=== PATIENT | female | born 1965 ===

== ENCOUNTER 2016-10-28 07:00 | Inpatient (IN) | payer OTHER ==
[~2016-10-28] VITALS: Ht 160 cm; Wt 106.1 kg
[2017-01-26] MEDS ORDERED: METFORMIN HCL1000 M1 ORAL (15:12)
[2017-01-26] MEDS ORDERED: NORVASC5 MG ORAL (15:13)
[2017-01-27] VITALS (13 sets, daily range): BP systolic 110–142; BP diastolic 61–82
[2017-01-27 06:12] LABS: BASOPHILS % (AUTO) 1.1 % (0.0-2.0); EOSINOPHILS % (AUTO) 1.3 % (0.0-3.0); LYMPHOCYTES % (AUTO) 31.6 % (20.0-45.0); MEAN CORPUSCULAR HEMOGLOBIN 29.2 PG (27.0-31.0); MEAN CORPUSCULAR HGB CONC 33.5 G/DL (32.0-36.0); MEAN CORPUSCULAR VOLUME 87 FL (80-99); MEAN PLATELET VOLUME 8.7 FL (6.5-10.1); MONOCYTES % (AUTO) 5.4 % (1.0-10.0); NEUTROPHILS % (AUTO) 60.5 % (45.0-75.0); PLATELET COUNT 285 K/UL (150-450); RED BLOOD COUNT 5.06 M/UL (4.20-5.40); RED CELL DISTRIBUTION WIDTH 12.4 % (11.6-14.8)
[2017-01-27] MEDS ORDERED: Thrombin 5000 units TOPIC ONE (06:32)
[2017-01-27] MEDS ORDERED: Surgicel 4in x 8in TOPIC ONE (06:32)
[2017-01-27] MEDS ORDERED: Vancomycin 1gm inj IVPB ONE (06:32)
[2017-01-27] MEDS ORDERED: Heparin 5000 units/ml inj ONE (06:33)
[2017-01-27] MEDS ORDERED: Bupivacaine w/Epi 0.5% 30ml Vial INJ ONE (06:33)
[2017-01-27] MEDS ORDERED: Bupivacaine 0.5% Inj 30 ml vial INJ ONE (06:33)
[2017-01-27] MEDS ORDERED: Bacitracin 50000 Units Vial ONE (06:33)
[2017-01-27] MEDS ORDERED: LR 1000ml 1,000 ML IVLG SCH (06:54)
--- NOTE | 2017-01-27 06:58 | Immediate Post-Op Evaluation ---
Immediate Post-Op Evalulation Immediate Post-Op Evalulation Procedure: ALIF L4-5, Posterior Pedicle Screws, L4-5 Date of Evaluation: January 27, 2017 Time of Evaluation: 12:22 IV Fluids: 1000 LR Blood Products: 0 Estimated Blood Loss: 40 Urinary Output: 300 Blood Pressure Systolic: 142 Blood Pressure Diastolic: 76 Pulse Rate: 96 Respiratory Rate: 16 O2 Sat by Pulse Oximetry: 97 Temperature (Fahrenheit): 97.2 Pain Score (1-10): 3 Nausea: No Vomiting: No Complications 0 Patient Status: awake, reacts, patent, extubated, none Hydration Status: adequate Dru Grams Ancef IV Given Within 1 Hr of Incision: Yes Time Given: 07:36 Luiz Brown MD January 27, 2017 06:58
--- NOTE | 2017-01-27 06:58 | Anethesia Preoperative Eval ---
Anesthesia Pre-op PMH/ROS General Date of Evaluation: January 27, 2017 Time of Evaluation: 07:24 Anesthesiologist: Kevin ASA Score: ASA 3 Mallampati Score Class I : Soft palate, uvula, fauces, pillars visible Class II: Soft palate, uvula, fauces visible Class III: Soft palate, base of uvula visible Class IV: Only hard plate visible Mallampati Classification: Class II Surgeon: New Diagnosis: Back Pain Surgical Procedure: ALIF L4-5, Posterior Pedicle Screws, L4-5 Anesthesia History: none Family History: no anesthesia problems Allergies: Coded Allergies: No Known Allergies (Unverified , 01/26/17) Medications: see eMAR Past Medical History Cardiovascular: Reports: HTN Endocrine: Reports: DM Other: obesity - BMI 42 Anesthesia Pre-op Phys. Exam Physician Exam Last Vital Signs Date Time Temp Pulse Resp B/P Pulse Ox O2 Delivery O2 Flow Rate FiO2 01/27/17 05:49 98.4 88 18 137/82 96 Room Air Constitutional: NAD Neurologic: CN 2-12 intact Cardiovascular: RRR Respiratory: CTA Gastrointestinal: S/NT/ND Airway Exam Mallampati Score: Class II MO: full ROM: limited Teeth: intact Anesthesia Pre-op A/P Labs Hematology Test 01/27/17 05:40 White Blood Count 9.0 K/UL (4.8-10.8) Red Blood Count 5.06 M/UL (4.20-5.40) Hemoglobin 14.8 G/DL (12.0-16.0) Hematocrit 44.2 % (37.0-47.0) Mean Corpuscular Volume 87 FL (80-99) Mean Corpuscular Hemoglobin 29.2 PG (27.0-31.0) Mean Corpuscular Hemoglobin Concent 33.5 G/DL (32.0-36.0) Red Cell Distribution Width 12.4 % (11.6-14.8) Platelet Count 285 K/UL (150-450) Mean Platelet Volume 8.7 FL (6.5-10.1) Neutrophils (%) (Auto) 60.5 % (45.0-75.0) Lymphocytes (%) (Auto) 31.6 % (20.0-45.0) Monocytes (%) (Auto) 5.4 % (1.0-10.0) Eosinophils (%) (Auto) 1.3 % (0.0-3.0) Basophils (%) (Auto) 1.1 % (0.0-2.0) Coagulation Test 01/27/17 06:40 Prothrombin Time Pending Prothromb Time International Ratio Pending Activated Partial Thromboplast Time Pending Chemistry Test 01/27/17 05:40 Sodium Level Pending Potassium Level Pending Chloride Level Pending Carbon Dioxide Level Pending Blood Urea Nitrogen Pending Creatinine Pending Estimat Glomerular Filtration Rate Pending Glucose Level Pending Calcium Level Pending Risk Assessment & Plan Assessment: ASA 3 Plan: GA, BIS, Glidescope Status Change Before Surgery: No Pre-Antibiotics Dru Grams Ancef IV Given Within 1 Hr of Incision: Yes Time Given: 07:36 Luiz Brown MD January 27, 2017 06:58
[2017-01-27] MEDS ORDERED: Metoclopramide 10mg/2ml Inj IVP PRN ×2 (07:00→14:00)
[2017-01-27] MEDS ORDERED: ceFAZolin sod 1 GM in NS 55 ML IVPB ONE (07:00)
[2017-01-27] MEDS ORDERED: Oxycodone/Acetaminophen 5-325 ORAL PRN (07:00)
[2017-01-27] MEDS ORDERED: Hydromorphone 0.5mg/0.5ml inj IVP PRN (07:00)
[2017-01-27] MEDS ORDERED: Norco 5mg/325mg tab ORAL PRN (07:00)
[2017-01-27] MEDS ORDERED: Dexamethasone 4mg/ml vial IVP ONE (07:00)
[2017-01-27] MEDS ORDERED: DiphenhydrAMINE 50mg/ml Inj IVP PRN (07:00)
[2017-01-27] MEDS ORDERED: Midazolam 2mg/2ml Inj IVP PRN (07:00)
[2017-01-27] MEDS ORDERED: Norco 7.5mg/325mg tab ORAL PRN (07:00)
[2017-01-27] MEDS ORDERED: LORazepam Inj 2mg/ml 1ml IV PRN (07:00)
[2017-01-27] MEDS ORDERED: Dexamethasone 20mg/5ml IVP ONE (07:00)
[2017-01-27] MEDS ORDERED: Meperidine 25mg/0.5ml Inj IV PRN (07:00)
[2017-01-27] MEDS ORDERED: Ketorolac 30mg Inj IV PRN (07:00)
[2017-01-27] MEDS ORDERED: Atropine Inj 1mg/10ml Syr IV PRN (07:00)
[2017-01-27] MEDS ORDERED: fentaNYL 100 mcg/2 mL IV PRN (07:00)
[2017-01-27] MEDS ORDERED: Ketorolac 60mg Inj IV PRN (07:00)
[2017-01-27 07:10] LABS: ANION GAP 14 (5-15); CALCIUM 9.2 mg/dL (8.6-10.2); CARBON DIOXIDE 26 mEQ/L (20-30); CHLORIDE 98 mEQ/L (98-107); CREATININE 0.6 mg/dL (0.5-0.9); GLOMERULAR FILTRATION RATE > 60 mL/min (>60); HEMOLYSIS 139; POTASSIUM 4.6 mEQ/L (3.4-4.9); SODIUM 138 mEQ/L (135-145)
[2017-01-27] MEDS ORDERED: Acetaminophen (Non formulary) 100 ML IV ONE (07:15)
--- NOTE | 2017-01-27 07:19 | Pre-Procedure Note/Attestation ---
Pre-Procedure Note/Attestation Complete Prior to Procedure Planned Procedure: not applicable Procedure Narrative: Anterior L4-5: reconstruction, correction deformity, fusion bmp, Posterior pedicle screw L4, L5, Fusion Indications for Procedure Pre-Operative Diagnosis: Post trauma pain, spondylolisthesis, instability Attestation I attest that I discussed the nature of the procedure; its benefits; risks and complications; and alternatives (and the risks and benefits of such alternatives ), prior to the procedure, with the patient (or the patient's legal food service sales representatives). I attest that, if there was a reasonable possibility of needing a blood transfusion, the patient (or the patient's legal food service sales representatives) was given the [place] Department [employer] standardized written summary, pursuant to the [place] Blood Safety Act ([place] Health and Safety Code # 1645, as amended). I attest that I re-evaluated the patient just prior to the surgery and that there has been no change in the patient's H&P, except as documented below: TITO KINCAID January 27, 2017 07:19
[2017-01-27 07:22] LABS: PROTHROMBIN TIME 10.1 SEC (9.30-11.50)
[2017-01-27] MEDS ORDERED: Propofol 10mg/ml 100ml btl IV ONE (07:30)
[2017-01-27] MEDS ORDERED: Sterile Water Irrig 1000ml IRRIG ONE (07:30)
[2017-01-27] MEDS ORDERED: Zemuron 50mg/5ml Inj IV ONE (07:30)
[2017-01-27] MEDS ORDERED: NS 550ML IV ONE (07:30)
[2017-01-27] MEDS ORDERED: NS Irrig 1000ml ONE (07:30)
[2017-01-27] MEDS ORDERED: Midazolam 2mg/2ml Inj ONE (07:30)
[2017-01-27] MEDS ORDERED: fentaNYL 250mcg/5ml ONE (07:30)
[2017-01-27] MEDS ORDERED: Glycopyrrolate 0.2mg/ml 1ml Vial ONE (07:30)
[2017-01-27] MEDS ORDERED: Lidocaine 1% Plain 30 ml INJ ONE (07:30)
[2017-01-27] MEDS ORDERED: Neostigmine 1mg/ml 10ml Inj ONE (07:30)
[2017-01-27] MEDS ORDERED: LR 1000ml ONE ×2 (07:30)
[2017-01-27] MEDS ORDERED: Lidocaine 1% MPF 10mg/ml 5ml ONE (07:30)
[2017-01-27] MEDS ORDERED: fentaNYL 100 mcg/2 mL IV ONE (07:30)
--- NOTE | 2017-01-27 09:31 | Brief Operative Note ---
Immediate Post Operative Note Operative Note Pre-op Diagnosis: Post trauma pain, spondylolisthesis, instability Procedure: Anterior Discectomy L4-5 Correction deformity internal fixation titanium peek Aero-AL interbody device BMP fusion placement bmp xray ssep Post-op Diagnosis: same as pre-op Findings: consistent w/pre-op dx studies Surgeon: New Stover MD vascular Anesthesiologist: Kevin NUNES Anesthesia: general Specimen: none Complications: none Condition: stable Estimated Blood Loss: minimal Drains: none Implant(s) used?: Yes TITO KINCAID January 27, 2017 09:31
--- NOTE | 2017-01-27 11:48 | Brief Operative Note ---
Immediate Post Operative Note Operative Note Pre-op Diagnosis: Post trauma pain, spondylolisthesis, instability Procedure: Anterior Discectomy L4-5 Correction deformity internal fixation titanium peek Aero-AL interbody device BMP fusion placement bmp xray ssep Posterior L4,L5 pedicle screw facet fusion L4-L5 body habitus Post-op Diagnosis: same as pre-op Findings: consistent w/pre-op dx studies Surgeon: New Zimmer Solution Director: Posterior Missy VAUGHN Anesthesiologist: Kevin Anesthesia: general Specimen: none Complications: none Condition: stable Estimated Blood Loss: minimal Drains: none Implant(s) used?: Yes TITO KINCAID January 27, 2017 11:48
[2017-01-27] MEDS ORDERED: oxyCODONE 5mg IR tab ORAL PRN ×2 (13:45→14:00)
[2017-01-27] MEDS ORDERED: Rate Change PCA 1 Each MISC PRN (14:00)
[2017-01-27] MEDS ORDERED: HYDROmorphone 1mg/ml Carpuject IVP PRN (14:00)
[2017-01-27] MEDS ORDERED: Chloraseptic Spray 20mL Bottle ORAL PRN (15:00)
--- NOTE | 2017-01-27 16:09 | Diagnostic Imaging Report ---
Indications: Low back pain, lumbar fusion Technique: Low procedure including fluoroscopy performed by Dr. Wolff. Portable intraoperative AP and lateral spot film images of lower lumbar spine performed. Findings: Comparison: None Initial AP and lateral images labeled "auto damage adjuster" demonstrates surgical implement is overlying the L4-5 disc space. Subsequent images demonstrate placement of fusion hardware within the same disc space and across the posterior elements at the same level. IMPRESSION: Intraoperative changes as described
--- NOTE | 2017-01-27 16:18 | Operative Note - Dictated ---
DATE OF OPERATION: 01/27/2017 PRIMARY SURGEON: Alexandre Wolff M.D. SURGEONS: 1. Alexandre Wolff Ph.D. M.D., orthopedic spine. 2. Rodney Stover M.D., vascular surgery. Please see separate vascular report for exposure and closure, assist Dr. Wolff. ANESTHESIOLOGIST: Luiz Brown M.D. ANESTHESIA: General with intubation. ESTIMATED BLOOD LOSS: Minimal. COMPLICATIONS: None. POSTOPERATIVE CONDITION: Good/stable. PREOPERATIVE DIAGNOSIS: Posttraumatic L4-L5 lumbar spine instability with spondylolisthesis and severe back pain. POSTOPERATIVE DIAGNOSIS: Posttraumatic L4-L5 lumbar spine instability with spondylolisthesis and severe back pain. OPERATIVE PROCEDURE: Anterior diskectomy, L4-L5. Denuding endplates inferior L4 superior L5. Interbody reconstruction, correction of deformity, and tenriism of lordosis and kyphosis L4-L5. Interbody synthetic graft Aero-LT. Interbody reconstruction titanium-PEEK Aero-AL interbody device with 8 degrees lordosis. Bone morphogenic protein placement. Bone morphogenic protein-mediated fusion. Intraoperative x-rays interpreted by surgeon. SSEP monitoring. DESCRIPTION OF PROCEDURE: Anterior exposure was undertaken at the L4-L5 interval. Confirmation was undertaken with fluoroscopic guidance under sterile conditions, at midline and lateral correct positioning. Position of the marker were recorded. Marker removed. Annulotomy performed. Diskectomy to the posterior longitudinal ligament with excision of cartilaginous endplate superior L5 inferior L4. SSEP monitoring stable. Determination of the correct graft size graft placed with 8 degrees of lordosis. Internal fixation. Graft containing bone morphogenic protein placed for mediated fusion. Lutheran from kyphosis to lordosis noted. Confirmation further obtained with AP and lateral fluoroscopic images recorded under sterile conditions. Closure undertaken. Alexandre Wolff M.D. DR: WILBER JOB#: [id number] CC:
[2017-01-27] MEDS: PCA HYDROmorphone 1mg/ml 30 ML IV PRN (16:21)
[2017-01-27] MEDS: ceFAZolin sod 1 GM in D5W 55 ML IV SCH ×2 (16:25→22:42)
[2017-01-27] MEDS: NovoLOG Insulin Flexpen SUBQ SCH ×2 (16:30→21:00)
--- NOTE | 2017-01-27 17:29 | Operative Note - Dictated ---
DATE OF OPERATION: 01/27/2017 SURGEON: Alexandre Wolff Ph.D. M.D. HIM DIRECTOR: JOHANA Guzman. ANESTHESIOLOGIST: Luiz Brown M.D. ANESTHESIA: General anesthesia with intubation. ESTIMATED BLOOD LOSS: Minimal. OPERATIVE PROCEDURE: Posterior pedicle screw instrumentation, L4, L5 bilaterally. Bilateral L4-L5 set fusion. The patient's body habitus greater than 95th percentile for height. Intraoperative fluoroscopy interpreted by surgeon. SSEP monitoring. EMGs. Screw electrical stimulation. DESCRIPTION OF PROCEDURE: The patient was brought to the operating room. Anterior procedure was completed. The patient was carefully turned to the prone position with a change of tables as well as all instrumentation. Back was sterilely prepped. Spinal needle was placed percutaneously into the subcutaneous tissue only in midline and a cross-table imaging was obtained under sterile conditions demonstrating the correct levels for incision placement. Levels were marked. Needle was removed. Back was re-sterilely prepped and draped free in usual sterile fashion. A longitudinal incision overlying the appropriate intervals was sharply placed at the dermis and epidermis. Electrocautery dissection was carried through extensive subcutaneous tissue. Subcutaneous tissue depth 7 inches. Depth increasing complexity of procedure, surgical time, and postoperative care. The patient diabetic, increase in postoperative care and complexity of surgery. Lumbodorsal fascia was incised bilaterally with intervals with subperiosteal dissection over the lamina of L3-L4, L4-L5. The transverse processes of L4 and L5 exposed. Marker was placed. Cross-table imaging obtained under sterile conditions demonstrating correct level for further dissection. Pedicle screws from station was undertaken bilaterally at L4 and L5 pedicles with drilling of the posterior cortex. Pedicle finding with fluoroscopic guidance, determination of length of screw, tapping of the hole followed with physical palpation with ball-tipped probe with all cortical devine demonstrating integrity followed with screw insertion. No EMGs at any level. Electrical stimulation 5 milliamps negative, bilateral L4 bilateral L5. Wound irrigated with antibiotic-containing saline. Facet intervals obliterated with Midas Elie bur dissection L4-L5 bilaterally packed with allograft tamped into position for fusion. Interconnecting rods placed torqued into position. Wound copiously irrigated with antibiotic-containing saline. 2 grams of vancomycin powder placed. Sequential reapproximation of lumbodorsal fascia and subcutaneous tissue in multiple layers dermis and epidermis with jono. Sterile bandage applied and maintained in place with tape. The patient carefully turned from the prone to supine position on the transport bed where she was awakened and extubated in the operating room and transported to postop recovery in good stable condition. Alexandre Wolff M.D. DR: WILBER JOB#: [id number] CC:
[2017-01-27] MEDS: PCA shift volume MISC SCH (19:30)
--- NOTE | 2017-01-27 21:05 | Cardiology Progress Note ---
Assessment/Plan Assessment/Plan dictated Objective Last 24 Hour Vital Signs Date Time Temp Pulse Resp B/P Pulse Ox O2 Delivery O2 Flow Rate FiO2 01/27/17 18:32 20 01/27/17 18:02 20 01/27/17 17:32 18 01/27/17 17:17 19 01/27/17 17:02 20 01/27/17 16:54 97.0 83 20 110/61 95 Nasal Cannula 01/27/17 16:47 18 01/27/17 16:18 Nasal Cannula 3.0 32 01/27/17 16:17 97 Nasal Cannula 3.0 32 01/27/17 13:45 97.0 88 18 123/69 95 Nasal Cannula 3.0 01/27/17 13:35 97.0 01/27/17 13:30 85 17 114/68 94 Nasal Cannula 3.0 01/27/17 13:28 97.0 01/27/17 13:10 81 16 113/68 94 Nasal Cannula 3.0 01/27/17 13:00 88 16 123/72 95 Nasal Cannula 3.0 01/27/17 12:45 89 18 122/67 96 Nasal Cannula 3.0 01/27/17 12:30 86 22 120/70 97 Simple Mask 6.0 01/27/17 12:20 87 25 125/69 97 Simple Mask 6.0 01/27/17 12:15 89 28 133/74 98 Simple Mask 6.0 01/27/17 12:11 97.2 100 24 142/76 96 Simple Mask 6.0 01/27/17 12:11 96 16 97 01/27/17 12:00 97.5 87 22 122/78 94 Room Air 01/27/17 07:15 97.0 01/27/17 05:49 98.4 88 18 137/82 96 Room Air Intake and Output 01/26/17 01/27/17 19:00 07:00 # Voids 1 Laboratory Tests Test 01/27/17 05:40 01/27/17 06:40 White Blood Count 9.0 K/UL (4.8-10.8) Red Blood Count 5.06 M/UL (4.20-5.40) Hemoglobin 14.8 G/DL (12.0-16.0) Hematocrit 44.2 % (37.0-47.0) Mean Corpuscular Volume 87 FL (80-99) Mean Corpuscular Hemoglobin 29.2 PG (27.0-31.0) Mean Corpuscular Hemoglobin Concent 33.5 G/DL (32.0-36.0) Red Cell Distribution Width 12.4 % (11.6-14.8) Platelet Count 285 K/UL (150-450) Mean Platelet Volume 8.7 FL (6.5-10.1) Neutrophils (%) (Auto) 60.5 % (45.0-75.0) Lymphocytes (%) (Auto) 31.6 % (20.0-45.0) Monocytes (%) (Auto) 5.4 % (1.0-10.0) Eosinophils (%) (Auto) 1.3 % (0.0-3.0) Basophils (%) (Auto) 1.1 % (0.0-2.0) Sodium Level 138 mEQ/L (135-145) Potassium Level 4.6 mEQ/L (3.4-4.9) Chloride Level 98 mEQ/L (98-107) Carbon Dioxide Level 26 mEQ/L (20-30) Anion Gap 14 (5-15) Blood Urea Nitrogen 11 mg/dL (7-23) Creatinine 0.6 mg/dL (0.5-0.9) Estimat Glomerular Filtration Rate > 60 mL/min (>60) Glucose Level 115 mg/dL (74-106) H Calcium Level 9.2 mg/dL (8.6-10.2) Prothrombin Time 10.1 SEC (9.30-11.50) Prothromb Time International Ratio 1.0 (0.9-1.1) Activated Partial Thromboplast Time 27 SEC (23-33) RAHEEL CRAWLEY January 27, 2017 21:05
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
[2017-01-28] VITALS: BP 104/66
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
[2017-01-28 04:00] VITALS: BP 114/68
[2017-01-28] MEDS: ceFAZolin sod 1 GM in D5W 55 ML IV SCH (06:45)
[2017-01-28] MEDS: NovoLOG Insulin Flexpen SUBQ SCH ×4 (06:47→20:46)
[2017-01-28] MEDS: PCA shift volume MISC SCH ×2 (07:00→19:28)
[2017-01-28 07:33] LABS: ALANINE AMINOTRANSFERASE 33 U/L (3-33); ALBUMIN/GLOBULIN RATIO 1.2 (1.0-2.7); ANION GAP 11 (5-15); ASPARTATE AMINO TRANSFERASE 27 U/L (5-40); CALCIUM 8.3 mg/dL (8.6-10.2); CARBON DIOXIDE 28 mEQ/L (20-30); CHLORIDE 103 mEQ/L (98-107); CREATININE 0.7 mg/dL (0.5-0.9); GLOMERULAR FILTRATION RATE > 60 mL/min (>60); HEMOLYSIS 1; SODIUM 142 mEQ/L (135-145); TOTAL PROTEIN 6.4 g/dL (6.6-8.7)
[2017-01-28 08:00] VITALS: BP 125/73
[2017-01-28] MEDS: Docusate 100mg/10ml Liq NG SCH ×2 (09:33→17:47)
[2017-01-28] MEDS ORDERED: Hydromorphone 0.5mg/0.5ml inj IVP PRN (11:00)
[2017-01-28 12:00] VITALS: BP 111/61
[2017-01-28 16:00] VITALS: BP 111/57
[2017-01-28] MEDS ORDERED: D5W 275ml ONE (16:12)
[2017-01-28] MEDS ORDERED: Tubing IV Secondary IV ONE (16:12)
--- NOTE | 2017-01-28 16:29 | Operative Note - Dictated ---
DATE OF OPERATION: 01/27/2017 VASCULAR SURGEON: Rodney Stover M.D. SPINE SURGEON: Alexandre Wolff M.D. PREOPERATIVE DIAGNOSIS: Degenerative disc disease. POSTOPERATIVE DIAGNOSIS: Degenerative disc disease. PROCEDURE PERFORMED: Anterior retroperitoneal exposure of L4-L5 vertebral interspace. INDICATIONS: The patient is a very pleasant woman, who was seen prior to surgery, who presented for anterior fusion at L4-L5. She has no history of deep vein thrombosis or bleeding complications. She has been made aware of the risks of the surgery including vascular injury, possible deep vein thrombosis and bleeding complications. DESCRIPTION OF FINDINGS: A low vertical midline incision was used. A left retroperitoneal approach was used. There is no peritoneal or ureteral violation. There is no vascular injury. Exposure of L4-L5 was obtained by retraction of left iliac vessels towards the patient's right. Fluoroscopy used to confirm the appropriate level. On competition, the peritoneum and ureter intact. Iliac vessels were intact. There are palpable femoral pedal pulses. Neurologic monitoring is normal throughout the case and blood loss was approximately 50 mL. DESCRIPTION OF PROCEDURE: The patient taken to the operative room, general anesthesia was used. IV antibiotics were given. The patient's abdomen was prepped and draped. Appropriate timeout procedures were taken. A vertical midline incision made infraumbilically. The anterior fascia was incised longitudinally in the midline. A plane identified posterior to the left rectus abdominis and developed posterolaterally towards the patient's left. The retroperitoneal space was entered below the arcuate line. The peritoneum and ureter mobilized towards the patient's right exposing the left common iliac vessels. Dissection was carried lateral to the left common iliac vein. Overlying lymphatics were ligated with vascular clips. The iliolumbar vein was identified and encircled using a 2-0 silk tie and triply ligated proximally distally and divided. The L4 segmental artery and veins were also identified, ligated with vascular clips and divided. This allowed us to then gently mobilized the left iliac vessels towards the patient's right and then placed the Omni retractor to expose the anterior surface of L4-L5. Fluoroscopy then used to confirm the appropriate level and then instrumentation performed L4-L5 dictated separately. On completion, retractor gently removed. The peritoneum and ureter intact. Iliac vessels are intact. Anterior fascia was closed using 1 PDS in running fashion and skin subcutaneous tissue closed using 3-0 Vicryl and 4-0 Monocryl running subcuticular closure technique. ESTIMATED BLOOD LOSS: Less than 50 mL. COMPLICATIONS: None. Rodney Stover M.D. DR: SARANYA JOB#: [id number] CC: Basil Paris M.D.
[2017-01-28] MEDS: PCA HYDROmorphone 1mg/ml 30 ML IV PRN (16:57)
--- NOTE | 2017-01-28 17:38 | Progress Note ---
DATE: 01/28/2017 ACUTE PAIN MANAGEMENT PHYSICIAN PROGRESS NOTE OBJECTIVE: VITAL SIGNS: Current temperature 101.7, which is the T-max; pulse 101; respirations 20; blood pressure 125/73; and oxygen saturation 95%. LABORATORY STUDIES: No interval laboratory studies. MEDICATION LIST: Colace, Protonix, and insulin. P.r.n. medications include Benadryl, Dilaudid PARKING TECHNICIAN, Soma, Zofran, Phenergan, Mylanta, Chloraseptic spray, breakthrough Dilaudid, and oxycodone. I spent over 60 minutes in consultation today. I saw the patient at bedside with the physical therapist after speaking with the nurse. I discussed the case with the surgeon, Dr. Wolff. The patient will be ambulating with Physical Therapy later this morning. She is massively obese and needs to ambulate frequently and aggressively. She already has postoperative fevers, which is likely contributed by significant pulmonary atelectasis. Encouraged aggressive incentive spirometer usage along with ambulation. I have added plain Tylenol to be given for these fevers. The patient will continue on her PARKING TECHNICIAN Dilaudid unit. She also has been receiving breakthrough doses of Dilaudid and I encourage p.r.n. Soma and oxycodone as well. The patient has not been passing positive flatus, so she will remain NPO. I will increase her IV fluid rate to 150 mL an hour for better intravascular rehydration as she does have a body mass index of 42. Her urine output has been adequate. We will wait for improvement in the patient's bowel function. We will monitor her advancement with physical therapy and continue monitoring her vital signs while she rehabilitates after her lumbar spine fusion surgery. Bubba Pinedo M.D. DR: CAM JOB#: [id number] CC:
[2017-01-28 20:00] VITALS: BP 129/65
--- NOTE | 2017-01-28 20:02 | Cardiology Progress Note ---
Assessment/Plan Assessment/Plan dm htn s/p lumbar surgery his o fabn lft seem to be doign well bs are ok for truman most part is on ISS and accucheck while npo when start on regualr diet will resume usull po meds (glucophage 1000 mg bid and norvasc 5 mg qd ) pt understand to fu with me in office with log of bs on fue in 1 week to assure adequate bs control to prevent infection Subjective Cardiovascular: Denies: chest pain, lightheadedness, palpitations Respiratory: Denies: SOB with excertion Gastrointestinal/Abdominal: Reports: abdominal pain Genitourinary: Denies: burning Subjective walked has pain in truman righ leg form the low back Objective Last 24 Hour Vital Signs Date Time Temp Pulse Resp B/P Pulse Ox O2 Delivery O2 Flow Rate FiO2 01/28/17 17:31 98.2 01/28/17 17:00 20 01/28/17 16:57 20 01/28/17 16:00 98.2 79 19 111/57 94 01/28/17 14:32 20 01/28/17 12:00 100.8 78 19 111/61 94 Room Air 01/28/17 11:02 99.9 01/28/17 10:32 20 01/28/17 08:00 101.7 101 20 125/73 95 Room Air 01/28/17 06:32 20 01/28/17 04:00 99.1 88 18 114/68 99 Nasal Cannula 2.0 01/28/17 02:32 20 01/28/17 00:00 98.8 67 18 104/66 98 Nasal Cannula 2.0 01/28/17 00:00 20 01/27/17 22:32 20 General Appearance: no apparent distress, alert Neck: supple Cardiovascular: normal rate, regular rhythm Respiratory/Chest: lungs clear, normal breath sounds Abdomen: non tender, soft, hypoactive bowel sounds Extremities: no swelling Intake and Output 01/27/17 01/28/17 19:00 07:00 Intake Total 1725 ml Output Total 595 ml Balance 1130 ml Intake IV Total 1725 ml Output Urine Total 575 ml Estimated Blood Loss 20 ml Laboratory Tests Test 01/28/17 06:25 Sodium Level 142 mEQ/L (135-145) Potassium Level 4.0 mEQ/L (3.4-4.9) Chloride Level 103 mEQ/L (98-107) Carbon Dioxide Level 28 mEQ/L (20-30) Anion Gap 11 (5-15) Blood Urea Nitrogen 9 mg/dL (7-23) Creatinine 0.7 mg/dL (0.5-0.9) Estimat Glomerular Filtration Rate > 60 mL/min (>60) Glucose Level 121 mg/dL (74-106) H Calcium Level 8.3 mg/dL (8.6-10.2) L Total Bilirubin 0.5 mg/dL (0.0-1.2) Aspartate Amino Transf (AST/SGOT) 27 U/L (5-40) Alanine Aminotransferase (ALT/SGPT) 33 U/L (3-33) Alkaline Phosphatase 81 U/L (35-104) Total Protein 6.4 g/dL (6.6-8.7) L Albumin 3.6 g/dL (3.5-5.2) Globulin 2.8 g/dL Albumin/Globulin Ratio 1.2 (1.0-2.7) RAHEEL CRAWLEY January 28, 2017 20:02
[2017-01-29] MEDS: NovoLOG Insulin Flexpen SUBQ SCH ×4 (06:30→20:37)
[2017-01-29] MEDS: Docusate 100mg/10ml Liq NG SCH ×2 (07:59→17:40)
[2017-01-29 08:00] VITALS: BP 122/69
--- NOTE | 2017-01-29 09:48 | Progress Note ---
DATE: 01/29/2017 ACUTE PAIN MANAGEMENT PHYSICIAN PROGRESS NOTE. MEDICATIONS: Medication administration record reviewed. Medications include Tylenol, Mylanta, Soma, Benadryl, Colace, Dilaudid, diabetes medications, Narcan, Zofran, oxycodone, Protonix, Chloraseptic and Phenergan. LABORATORY STUDIES: From 01/27/2017, shows hematocrit 44, platelets 285,000, and white count 9. PHYSICAL EXAMINATION: VITAL SIGNS: T-max 99.7 degrees, pulse 95, respirations 20, and pulse ox 96% on supplemental oxygen. I spent over 65 minutes in consultation today. I saw the patient at bedside with the nurse RN Nissa, who interpret in [place]. The patient has been compliant using her incentive spirometer, which has helped to reduce her fevers, but somewhat she still has low-grade fevers and I encouraged more aggressive ambulation and continued incentive spirometer usage. After her anterior lumbar interbody fusion surgery, the patient still has not yet passed positive flatus. She remains on IV fluids, which I will decrease to 125 mL an hour. Hopefully with further ambulation today, she will start passing gas and Dr. Wolff, surgeon, will begin advancing her diet. The patient already states that she already has a prescription filled for pain medications, but she wants her once she returns home. The is at home and will be able to assist with activities of daily living when she does discharge. At this time. I will discontinue the POLICEWOMAN. She will continue with as p.r.n. doses of oxycodone, Dilaudid and Tylenol for breakthrough pain along with as needed Soma in case of spasms. We will continue to monitor the patient's progress after anterior lumbar interbody fusion surgery. She will need to have a bowel movement prior to discharge to home. Bubba Pinedo M.D. DR: Barbara JOB#: [id number] CC:
[2017-01-29 12:00] VITALS: BP 119/72
--- NOTE | 2017-01-29 16:37 | Cardiology Progress Note ---
Assessment/Plan Problem List: (1) Type 2 diabetes mellitus (2) Hypertension (3) Pain (4) Fusion of spine of lumbar region Status: stable, progressing Status Narrative Hemodynamically stable, s/p lumbar spine surgery h/ htn , dm Assessment/Plan restart usual meds ( metformin 100 mg bid and norvasc 5 mg /d) when pt able to take po meds/ food Subjective Subjective Cardiology for Dr. He Pt sedated/ no c/o Objective Last 24 Hour Vital Signs Date Time Temp Pulse Resp B/P Pulse Ox O2 Delivery O2 Flow Rate FiO2 01/29/17 15:44 98.2 01/29/17 12:00 98.2 93 18 119/72 98 Nasal Cannula 2.0 01/29/17 08:00 98.2 96 18 122/69 97 Nasal Cannula 2.0 01/29/17 07:19 97 Nasal Cannula 3.0 32 01/29/17 07:19 Nasal Cannula 3.0 32 01/29/17 04:00 20 01/29/17 00:52 Nasal Cannula 3.0 32 01/29/17 00:51 100 Nasal Cannula 3.0 32 01/29/17 00:00 20 01/28/17 20:00 99.7 18 129/65 96 Room Air 01/28/17 20:00 20 01/28/17 17:31 98.2 01/28/17 17:00 20 01/28/17 16:57 20 General Appearance: WD/WN, no apparent distress, obese EENT: PERRL/EOMI Neck: supple, no JVD Rhythm: NSR Cardiovascular: normal rate, regular rhythm Respiratory/Chest: lungs clear, other - clear anteriorly Abdomen: non tender, soft Extremities: no swelling Intake and Output 01/28/17 01/29/17 19:00 07:00 Intake Total 1800 ml 1500 ml Output Total 1000 ml 700 ml Balance 800 ml 800 ml Intake IV Total 1800 ml 1500 ml Output Urine Total 1000 ml 700 ml Microbiology Date/Time Source Procedure Growth Status 01/27/17 05:40 Nasal Nares MRSA Culture - Final NO METHICILLIN RESISTANT STAPH AUREUS... Complete ADRIAN LI January 29, 2017 16:37
--- NOTE | 2017-01-29 17:28 | General Progress Note ---
Progress Note Progress Note POD 1 CC: Right proximal Hamstring pain extending to the proximal posterior tibia. Pain without numbness / tingling. Denies weakness only with weightbearing. negative non-weightbearing. resolution pre-op back pain. Physical Exam: Supine tenderness right ischium / proximal hamstring [palpaation re-creates pain as noted above] soft touch sensibility symmetrical L3, L4, L5, S1 Motor 5/5 Right = Left: Tibialis anterior, EHL, peroneus l/b, post-tib, triceps s. -cords Hip ROM hip flexion 90 degrees bilaterally symmetrical / non-tender IRF/ERF: 35/ [address]: LS Spine Right L5 pedicle scrwe possible medialization <2.5mm [cut thickness too thick for full deliniation, no coronal reconstructions Impression Right Hamstring Tenderness c/w positioning surgery. Plan: Soma 350 qid x 24 hrs then prn Slowly increase diet [+ flatus] If further considerations for instrumentation placement - repeat thin cut CT L4- L5 TITO KINCAID January 29, 2017 17:28
[2017-01-29 20:00] VITALS: BP 130/58
[2017-01-30] VITALS: BP 123/67
[2017-01-30 04:00] VITALS: BP 129/77
[2017-01-30] MEDS: NovoLOG Insulin Flexpen SUBQ SCH ×2 (06:30→12:42)
[2017-01-30 08:00] VITALS: BP 129/77
[2017-01-30] MEDS: Docusate 100mg/10ml Liq NG SCH (08:54)
[2017-01-30] MEDS ORDERED: Magnesium Citrate Liq Btl ORAL PRN ×2 (09:45→09:54)
[2017-01-30] MEDS ORDERED: Magnesium Citrate Liq Btl ORAL ONE (10:30)
[2017-01-30 13:46] VITALS: BP 134/71
--- NOTE | 2017-01-30 18:58 | Progress Note ---
DATE: 01/30/2017 ACUTE PAIN MANAGEMENT PHYSICIAN PROGRESS NOTE MEDICATIONS: Medication administration record reviewed. Medications include IV fluids, Chloraseptic, Protonix, oxycodone, Zofran, Toradol, Dilaudid, Colace, Benadryl, Soma, and Mylanta. OBJECTIVE: VITAL SIGNS: Afebrile, pulse 91, respirations 20, blood pressure 129/77, and pulse oximetry 97% on supplemental oxygen. LABORATORY STUDIES: No interval laboratory studies. I spent over 60 minutes in consultation today. I have discussed the case with the surgeon, Dr. Wolff and I saw the patient at bedside with the nurse RN, Hattie. The patient is finally afebrile after more aggressive usage of the incentive spirometer and more ambulation. She continues on supplemental nasal cannula oxygen. I have asked the nurse to wean her off the oxygen. The patient has been very compliant using her incentive spirometer. The patient is passing positive flatus and has been tolerating advancing diet without difficulties. I will dose with magnesium citrate this morning. I have made available p.r.n. magnesium citrate as well as Dulcolax suppositories to help desk technician bowel movement occurring. Also, we will dose the patient with prune juice. Since she is tolerating oral intake, I will Hep-Lock her IV to encourage movement in and out of bed. The patient needs to be more ambulatory with her massive obesity. Dr. Wolff and I saw the patient earlier yesterday and was pleased with the surgical outcome as well as the wound appearance. The patient already has good supply of pain medications for home usage and her will be with visiting later today with hopeful discharge home within 24 hours. Bubba Pinedo M.D. DR: JAVAD JOB#: [id number] CC:
--- NOTE | 2017-01-31 08:08 | Diagnostic Imaging Report ---
Indication: Back pain Technique: Continuous helical transaxial imaging of the lumbar spine was obtained from the lung bases to the pubic symphysis. No IV contrast was administered. Coronal 2-D reformats were also obtained. Study obtained in a Siemens sensation [address] Total Dose length Product (DLP): [address] Dose Index Volume (CTDIvol): 39 mGy Comparison: None Findings: No fracture or malalignment is identified on the examination. The patient has had previous L4-5 fusion with pedicle screws and fusion rods as well as discectomy and prosthetic disc placement at L4-5. Hardware alignment and positioning appears satisfactory. Surgeries likely been recent as there is still soft tissue swelling and air noted about the surgical bed. Impression: No obvious acute abnormality identified. Status post L4-5 instrumented fusion and disc replacement. Dr. Bartlett has communicated the preliminary results to the Emergency Department. There are no significant discrepancies. The CT scanner at [facility] is accredited by the [employer] and the scans are performed using protocols designed to limit radiation exposure to as low as reasonably achievable to attain images of sufficient resolution adequate for diagnostic evaluation.
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
== END 2017-01-30 15:05 | disposition home or self-care (01) | DRG 454 ==
LOC: SDSOVERFLO 01-27 05:13 → 3E 01-27 13:22
PROC: 0SG00A0 Fusion of Lumbar Vertebral Joint with Interbody Fusion Device, Anterior Approach, Anterior Column, Open Approach (ICD-10-PCS; principal; 2017-01-27 07:00)
PROC: 0ST20ZZ Resection of Lumbar Vertebral Disc, Open Approach (ICD-10-PCS; principal; 2017-01-27 07:00)
PROC: 0SG00Z1 (ICD-10-PCS; principal; 2017-01-27 07:00)
PROC: 3E0U0GB Introduction of Recombinant Bone Morphogenetic Protein into Joints, Open Approach (ICD-10-PCS; principal; 2017-01-27 07:00)
DX: M51.16 Intervertebral disc disorders with radiculopathy, lumbar region (principal); Z68.41 Body mass index [BMI] 40.0-44.9, adult; I10 Essential (primary) hypertension; E66.01 Morbid (severe) obesity due to excess calories; M43.16 Spondylolisthesis, lumbar region; M53.2X6 Spinal instabilities, lumbar region; E11.9 Type 2 diabetes mellitus without complications; Z79.4 Long term (current) use of insulin; V89.2XXA Person injured in unspecified motor-vehicle accident, traffic, initial encounter; G89.18 Other acute postprocedural pain; R50.9 Fever, unspecified
CPT/HCPCS: 36415; 72020; 72131; 76001; 80048; 80053; 82962; 85025; 85610; 85730; 86850; 86900; 86901; 87081; 94003; 94150; 94760; J1815; J2250; J2405; J2710